=== PATIENT | male | born 1940 | race Caucasian/White ===

== ENCOUNTER 2016-02-21 12:02 | Emergency (ER) | payer OTHER, MEDICARE ==
[~2016-02-21] VITALS: Wt 76.5 kg
[2016-02-21] MEDS ORDERED: SOD CHLORIDE 0.9% 1,000 ML IV STA (12:49)
[2016-02-21 13:11] LABS: BASOPHILS % 0.4 % (0.0-2.0); EOSINOPHILS % 0.4 % (0.0-7.0); HEMATOCRIT 45.7 % (42.0-52.0); HEMOGLOBIN 15.5 g/dl (14.0-18.0); LYMPHOCYTES # 1.2 10^3/ul (0.8-2.9); LYMPHOCYTES % 23.2 % (15.0-51.0); MEAN CORPUSCULAR HEMOGLOBIN 32.3 pg (29.0-33.0); MEAN CORPUSCULAR HGB CONC 33.9 g/dl (32.0-37.0); MEAN CORPUSCULAR VOLUME 95.1 fl (82.0-101.0); MEAN PLATELET VOLUME 7.6 fl (7.4-10.4); MONOCYTE # 0.4 10^3/ul (0.3-0.9); MONOCYTES % 7.5 % (0.0-11.0); NEUTROPHIL # 3.6 10^3/ul (1.6-7.5); NEUTROPHILS % 68.5 % (39.0-77.0); PLATELET COUNT 221 10^3/UL (140-440); RED BLOOD COUNT 4.81 10^6/ul (4.70-6.10); RED CELL DISTRIBUTION WIDTH 13.6 % (11.5-14.5); UNCORRECTED WBC 5.2 10^3/ul (4.8-10.8); WHITE BLOOD COUNT 5.2 10^3/ul (4.8-10.8)
[2016-02-21 13:13] LABS: CONDITION 1
[2016-02-21 13:31] LABS: CHLORIDE 102 mmol/L (97-110); POTASSIUM 4.5 mmol/L (3.5-5.1); SODIUM 145 mmol/L (135-144)
[2016-02-21 13:33] LABS: INR 0.94; PARTIAL THROMBOPLASTIN TIME 31.5 Sec (25.0-35.0); PROTIME 12.6 Sec (12.2-14.2)
[2016-02-21 13:34] LABS: ANION GAP 17 (8-16); BLOOD UREA NITROGEN 14 mg/dl (7-20); CARBON DIOXIDE 31 mmol/L (21-31)
[2016-02-21 13:35] LABS: CALCIUM 9.1 mg/dl (8.4-10.2); GLUCOSE 102 mg/dl (70-220)
--- NOTE | 2016-02-21 13:37 | RADRPT ---
PROCEDURE: CT Head without contrast. CLINICAL INDICATION: Dizziness, headache, fall TECHNIQUE: Continuous axial CT images were obtained from the base of skull to the vertex. No cont rast was administered. The calculated radiation dose measures 630 mGy centimeters. The CTDI measures 45 mGy COMPARISON: None available FINDINGS: There is mild diffuse cerebral volume loss. The ventricles are symmetric and normal in configuratio n. There is no mass effect or midline shift. There is no abnormal intra-axial or extra-axial fluid collection. There is no evidence of intracranial hemorrhage. There are scattered areas of decreased attenuation in the supratentorial white matter, consistent wi th mild small vessel ischemic changes. There is prominent atherosclerotic vascular calcification. Th ere is an old left basal ganglia lacunar infarct or prominent perivascular space.. The bony calvarium is intact. The orbital soft tissue contents are unremarkable. Paranasal sinuses appear clear. IMPRESSION: 1. Mild age related cerebral volume loss. Mild small vessel ischemic changes. 2. Prominent atherosclerotic vascular calcification. 3. Old left basal ganglia lacunar infarct or prominent perivascular space. 4. No mass effect or acute intracranial bleed. RPTAT: HBST .Hermann Stevens MD, MD Date Time Electronically viewed and signed by .Hermann Stevens MD, on 02/21/2016 13:36 .T/
[2016-02-21 13:48] LABS: TROPONIN-I < 0.010 ng/ml (0.00-0.12)
[2016-02-21 13:57] LABS: ADD UMIC NO; URINE BILIRUBIN (Dip) NEGATIVE (NEGATIVE); URINE BLOOD (Dip) NEGATIVE (NEGATIVE); URINE COLOR LT. YELLOW (YELLOW); URINE GLUCOSE (Dip) NEGATIVE (NEGATIVE); URINE KETONES (Dip) NEGATIVE (NEGATIVE); URINE LEUKOCYTE ESTERASE (Dip) NEGATIVE (NEGATIVE); URINE NITRITE (Dip) NEGATIVE (NEGATIVE); URINE TOTAL PROTEIN (Dip) NEGATIVE (NEGATIVE); URINE UROBILINOGEN (Dip) 0.2 E.U./dL (0.1-1.0)
[2016-02-21 14:12] LABS: BARBITURATES Negative (NEGATIVE); BENZODIAZEPINES Negative (NEGATIVE)
[2016-02-21 14:13] LABS: CANNABINOIDS Negative (NEGATIVE); COCAINE Negative (NEGATIVE)
[2016-02-21 14:16] LABS: OPIATES Negative (NEGATIVE)
--- NOTE | 2016-02-21 14:32 | RADRPT ---
PROCEDURE: XR Chest. CLINICAL INDICATION: Chest pain, dizziness, altered level of consciousness TECHNIQUE: AP view of the chest was performed. COMPARISON: FINDINGS: Mild cardiomegaly and vascular congestion are present. No acute infiltrate.. No signs of pleural fl uid or pneumothorax are seen. The osseous structures and soft tissues are unremarkable. IMPRESSION: Mild cardiomegaly and vascular congestion. No acute infiltrate. RPTAT: QQ .Juanis Mccurdy MD, MD Date Time Electronically viewed and signed by .Juanis Mccurdy MD, MD on 02/21/2016 14:32 .F/
[2016-02-21] MEDS ORDERED: MECL12.574 PO (14:37)
--- NOTE | 2016-02-21 15:01 | ERD ---
ER Documentation Chief Complaint Date/Time DATE: 02/21/16 TIME: 14:58 Chief Complaint DIZZINESS, MILD HEADACHE, FELL TWICE TODAY, NO LOC HPI Patient is a 75-year-old male with hypertension and high cholesterol who presents with dizziness. The symptoms started this morning. The whole body was shaking as well per the sister. He felt like the room was spinning. There were no fevers. He has had this in the past. He had pain in the back of his head. There was no slurred speech. There was no weakness of the arms or legs. Upon review of old medical records this is the patient's first visit to the emergency department. He goes to a local clinic for his care. ROS All systems reviewed and are negative except as per history of present illness. Medications Home Meds Active Scripts Meclizine Hcl* (Antivert*) 12.5 Mg Tab, 25 MG PO Q6H Y for DIZZINESS, #20 TAB Prov:AMMY PICKERING MD 02/21/16 Allergies Allergies: Coded Allergies: No Known Allergy (Unverified , 02/21/16) PMhx/Soc History of Surgery: No Anesthesia Reaction: No Hx Neurological Disorder: No Hx Respiratory Disorders: No Hx Cardiac Disorders: Yes (HTN, HIGH CHLOS) Hx Psychiatric Problems: No Hx Miscellaneous Medical Probl: No Hx Alcohol Use: No Hx Substance Use: No Hx Tobacco Use: No Smoking Status: Unknown if ever smoked FmHx Family History: No diabetes Physical Exam Vitals Vital Signs Date Time Temp Pulse Resp B/P Pulse Ox O2 Delivery O2 Flow Rate FiO2 02/21/16 13:19 Nasal Cannula 2 02/21/16 12:09 97.5 62 18 190/94 97 Physical Exam Const: No acute distress Head: Atraumatic Eyes: Normal Conjunctiva ENT: Normal External Ears, Nose and Mouth. Neck: Full range of motion..~ No meningismus. Resp: Clear to auscultation bilaterally Cardio: Regular rate and rhythm, no murmurs Abd: Soft, non tender, non distended. Normal bowel sounds Skin: No petechiae or rashes Back: No midline or flank tenderness Ext: No cyanosis, or edema Neur: Awake and alert, cranial nerves II through XII intact, strength is 5 out of 5 in all 4 extremities, no slurred speech, gait normal without signs of instability Psych: Normal Mood and Affect Result Diagram: 02/21/16 1300 02/21/16 1300 Results 24 hrs Laboratory Tests Test 02/21/16 12:55 02/21/16 13:00 02/21/16 13:16 Hemoglobin A1c 5.6% Activated Partial Thromboplast Time 31.5Sec Anion Gap 17 Basophils # 0.010^3/ul Basophils % 0.4% Blood Urea Nitrogen 14mg/dl Calcium Level 9.1mg/dl Carbon Dioxide Level 31mmol/L Chloride Level 102mmol/L Creatinine 0.80mg/dl Eosinophils # 0.010^3/ul Eosinophils % 0.4% Glucose Level 102mg/dl Hematocrit 45.7% Hemoglobin 15.5g/dl INR International Normalized Ratio 0.94 Lymphocytes # 1.210^3/ul Lymphocytes % 23.2% Mean Corpuscular Hemoglobin 32.3pg Mean Corpuscular Hemoglobin Concent 33.9g/dl Mean Corpuscular Volume 95.1fl Mean Platelet Volume 7.6fl Monocytes # 0.410^3/ul Monocytes % 7.5% Neutrophils # 3.610^3/ul Neutrophils % 68.5% Nucleated Red Blood Cells # 0.010^3/ul Nucleated Red Blood Cells % 0.0/100WBC Platelet Count 07909^3/UL Potassium Level 4.5mmol/L Prothrombin Time 12.6Sec Prothrombin Time Ratio 1.0 Red Blood Count 4.8110^6/ul Red Cell Distribution Width 13.6% Sodium Level 145mmol/L Troponin I < 0.010ng/ml White Blood Count 5.210^3/ul Urine Amphetamines Screen Negative Urine Barbiturates Negative Urine Benzodiazepines Screen Negative Urine Bilirubin NEGATIVE Urine Cannabinoids Negative Urine Clarity CLEAR Urine Cocaine Screen Negative Urine Color LT. YELLOW Urine Glucose NEGATIVE% Urine Hemoglobin NEGATIVE Urine Ketones NEGATIVE Urine Leukocyte Esterase NEGATIVE Urine Nitrite NEGATIVE Urine Opiates Screen Negative Urine Specific [place] 1.015 Urine Total Protein NEGATIVE Urine Urobilinogen 0.2 E.U./dL Urine pH 7.5 Current Medications Medications (Trade) Dose Ordered Sig/Lindsay Route PRN Reason Start Time Stop Time Status Last Admin Dose Admin Sodium Chloride (NS) 1,000 ml @ 1,000 mls/hr Q1H STAT IV 02/21/16 12:49 02/21/16 13:48 DC Procedures/MDM Patient is a 75-year-old male who presents with dizziness. His symptoms do not show any signs of stroke at this time. He has full strength in all 4 extremities and normal neurologic exam. His laboratory studies were basically normal. CT scan shows no acute abnormality. At this point I doubt stroke. I doubt acute coronary syndrome. I doubt serious bacterial infection such as sepsis. At this point I believe outpatient management is appropriate but the patient needs close follow-up with a primary doctor within 24 hours. I will give him information for the local clinics. I told him to return immediately if symptoms worsen. His gait was normal upon discharge without any signs of instability. Departure Diagnosis: Primary Impression: Dizziness Condition: Fair Patient Instructions: Dizziness, Unk Cause Referrals: NATALIA STEPHENS (PCP) Additional Instructions: Llame al doctor MAANA y karen lin KRISTEL PARA DENTRO DE 1-2 HOANG.Dgale a la secretaria que nosotros le instruimos hacer esta kristel.Avise o llame si vieyra condicin se empeora antes de la kristel. Regresa aqui si peor o no mejor. AMMY PICKERING MD Feb 21, 2016 15:01
[2016-02-21 15:11] VITALS: BP 179/97; PULSE 73; RESP 18; TEMP 98.6
== END 2016-02-21 15:13 | disposition home or self-care (01) ==
LOC: E/R 12:02
DX: R42 Dizziness and giddiness (principal); I10 Essential (primary) hypertension; R40.2142 Coma scale, eyes open, spontaneous, at arrival to emergency department; R40.2362 Coma scale, best motor response, obeys commands, at arrival to emergency department; R40.2252 Coma scale, best verbal response, oriented, at arrival to emergency department
CPT/HCPCS: 36415; 70450; 71010; 80048; 80307; 81003; 83036; 84484; 85025; 85610; 85730; 93005; J7030; Z7502

== ENCOUNTER 2017-01-31 21:11 | Emergency (ER) | payer MEDICARE, OTHER ==
[~2017-01-31] VITALS: Ht 162.6 cm; Wt 79.4 kg
[~2017-01-31 21:11] MED LIST: MECL12.574 PO
[2017-01-31 21:46] VITALS: Ht 162.6 cm; Wt 79.4 kg
== END 2017-02-01 01:53 | disposition left against medical advice (07) ==
LOC: E/R 21:11
DX: Z53.21 Procedure and treatment not carried out due to patient leaving prior to being seen by health care provider (principal)